=== PATIENT | male | born 1950 | race Caucasian/White ===

== ENCOUNTER 2016-11-04 11:33 | Outpatient (RCR) | payer MEDICARE ==
[~2016-11-04 11:33] MED LIST: ACTO30TA7 PO; ASPI1TAB PO; CIPR500T89 PO; CRES40TA PO; DOCU10CA PO; ENAL5TAB PO; GLIP5TAB8 PO; HYDR25TAB PO; METF1000 PO; PERC5TAB6 PO; TYLE325T5 PO
--- NOTE | 2016-12-02 07:59 | RADONC ---
RADIATION ONCOLOGY PROGRESS NOTE DATE: 12/01/2016 Mr. Jorge is presently at a dose of 6300 cGy to his prostate bed and is tolerating treatments quite well at this point with no complaints related to his radiation therapy. He is having no urinary or bowel difficulties and no bone pain. The patient's review of systems is noncontributory. He denies nausea, vomiting, fevers, chills, night sweats, diplopia, headaches, anxiety or depression, anorexia, weight loss, visual disturbances, chest pain, urinary or bowel difficulties, bone pain, or neurological problems. PHYSICAL EXAMINATION: The patient's skin is in good condition with no evidence of radiation change present. There is no moist dry desquamation. The remainder of his physical exam remains unchanged. Mr. Jorge is tolerating treatments quite well and radiation will continue as scheduled.
== END 2016-12-02 ==
LOC: M ONCR 11:33
PROVIDERS: ATTEND Radiology Radiation Oncology
DX: C61 Malignant neoplasm of prostate (principal)

== ENCOUNTER → 2016-12-02 | Outpatient (CLI) | payer MEDICARE | LOC: M LAB 15:31 | PROVIDERS: ATTEND Urology | DX: C61 Malignant neoplasm of prostate (principal) ==

== ENCOUNTER 2016-12-03 11:10 | Outpatient (RCR) | payer MEDICARE ==
--- NOTE | 2016-12-04 10:02 | RADONC ---
RADIATION ONCOLOGY TREATMENT SUMMARY: DATE: 12/03/2016 CHART NO.: [id number] DIAGNOSIS: Prostate cancer. STAGE: II B, [id number]. ECOG PERFORMANCE STATUS: 0 Mr. Jorge is a pleasant 66-year-old white male with the diagnosis of a stage II B, [id number] moderate to poorly differentiated Bradford score 7 (4-3) adenocarcinoma of the prostate who presented to us status post robotic assisted radical prostatectomy and pelvic lymph node sampling for consideration of postoperative radiation therapy in an attempt to increase his changes of local control and cure. We treated the patient to his prostate bed for a dose of 6660 cGy delivered in 37 fractions of 187 cGy each over 57 elapsed days from 10/07/2016 to 12/03/2016. The patient's prostate bed was treated on a linear accelerator utilizing an 18 MV photon beam via a 3D conformal technique with anterior, posterior, left and right lateral quiles. We initially treated a larger area to a dose of 4500 cGy and subsequently coned down to deliver the remaining 2160 cGy to bring the tumor bed to a total of 6660 cGy. The coned down was utilized in order to maintain the normal tissues within their tolerance limit. Mr. Jorge tolerated his treatments quite well and was able to complete therapy as prescribed without interruption. I have scheduled the patient to see me again in 1 month for further followup. He will also continue to be followed by his other physicians as well. Thank you for allowing us to participate in the care of this very pleasant gentleman. If I can be of any further assistance or provide you with any information, please feel free to contact me at any time. As always warm regards, cc: Darin Fish MD *Dr. Mahamed Shah
== END 2016-12-30 ==
LOC: M ONCR 11:10
PROVIDERS: ATTEND Radiology Radiation Oncology
DX: C61 Malignant neoplasm of prostate (principal)

== ENCOUNTER → 2016-12-26 | Outpatient (CLI) | payer MEDICARE | LOC: M LAB 15:10 | PROVIDERS: ATTEND Radiology Radiation Oncology | DX: C61 Malignant neoplasm of prostate (principal); N18.9 Chronic kidney disease, unspecified; D63.1 Anemia in chronic kidney disease ==

== ENCOUNTER → 2016-12-26 | Outpatient (REF) | payer MEDICARE ==
[2016-12-26 18:10] LABS: PERCENT SATURATION 18.8 % (19.7-37.4)
== END ==
LOC: M LAB REF 17:02
PROVIDERS: ATTEND Internal Medicine Nephrology
DX: N18.9 Chronic kidney disease, unspecified (principal); D63.1 Anemia in chronic kidney disease

== ENCOUNTER → 2016-12-31 | Outpatient (CLI) | payer MEDICARE ==
--- NOTE | 2017-01-02 12:33 | RADONC ---
RADIATION ONCOLOGY FOLLOWUP NOTE DATE: 12/31/2016 CHART NUMBER: [id number]. DIAGNOSIS: Prostate cancer. STAGE: IIB, [id number]. ECOG PERFORMANCE STATUS: 0 FOLLOWUP NOTE: Mr. Jorge is a very pleasant, 66-year-old white male with the diagnosis of a stage IIB, [id number] moderate to poorly differentiated Catrachito score 7 (4 + 3) adenocarcinoma of prostate who is presenting to us today for routine followup visit 1 month post completion of external beam radiation therapy. The patient presents today reporting that he is doing quite well with no complaints at this time related to his radiation therapy or disease. He has no urinary or bowel difficulties and no bone pain. REVIEW OF SYSTEMS: The patient's review of systems is noncontributory. Denies nausea, vomiting, fevers, chills, night sweats, diplopia, headaches, anxiety or depression, anorexia, weight loss, visual disturbances, chest pain, urinary or bowel difficulties, bone pain, or neurological problems. PHYSICAL EXAMINATION: The patient is a well-developed, well-nourished male in no acute distress. HEENT exam is normocephalic, atraumatic. Extraocular movements are intact. There is no palpable cervical, supraclavicular, infraclavicular, axillary, or inguinal lymphadenopathy present. Lungs are clear to auscultation and percussion. Heart has a regular rate and rhythm. Abdomen is benign with no hepatosplenomegaly, masses, or tenderness. Rectal examination reveals a normal anal sphincter tone. His prostate bed is smooth with no evidence of nodularity. Skeletal examination reveals no tenderness to pressure or percussion of the bony skeleton. Extremities reveal no clubbing, cyanosis, or edema. Neurologic exam is grossly intact, as is the remainder of the physical examination. ASSESSMENT: The patient is clinically doing well and will be seen by us again in 6 months for further followup. He will also continue to be followed by his other physicians as well. cc: Darin Fish MD *Dr. Mahamed Shah
== END ==
LOC: M ONCR 15:20
PROVIDERS: ATTEND Radiology Radiation Oncology
DX: C61 Malignant neoplasm of prostate (principal)

== ENCOUNTER → 2017-03-05 | Outpatient (CLI) | payer MEDICARE | LOC: M LAB 13:18 | PROVIDERS: ATTEND Urology | DX: C61 Malignant neoplasm of prostate (principal) ==

== ENCOUNTER → 2017-07-22 | Outpatient (CLI) | payer MEDICARE ==
[~2017-07-22] MED LIST changes: +ACTO30TA15 PO; -ACTO30TA7 PO; +CIPR-249 PO; -CIPR500T89 PO; -METF1000 PO; +METF10004 PO; +PERC5TAB12 PO; -PERC5TAB6 PO
== END ==
LOC: M LAB 14:47
PROVIDERS: ATTEND Radiology Radiation Oncology
DX: C61 Malignant neoplasm of prostate (principal)

== ENCOUNTER → 2017-07-29 | Outpatient (CLI) | payer MEDICARE ==
--- NOTE | 2017-07-30 10:18 | RADONC ---
RADIATION ONCOLOGY FOLLOWUP NOTE DATE: 07/29/2017 CHART NUMBER: [id number]. DIAGNOSISl: Prostate cancer. STAGE: IIB, L2pW3Q2. ECOG PERFORMANCE STATUS: Zero. FOLLOWUP NOTE: Mr. Jorge is a very pleasant, 66-year-old white male with the diagnosis of a stage IIB, [id number], moderate to poorly differentiated Raymond score 7 (4-3) adenocarcinoma of prostate who is presenting to us today for routine followup visit 7 months post completion of external beam radiation therapy. The patient presents today reporting that he is doing quite well with no complaints at this time related to his radiation therapy or disease. He has no urinary or bowel difficulties. No bone pain. REVIEW OF SYSTEMS: The patient's review of systems is noncontributory. Denies nausea, vomiting, fevers, chills, night sweats, diplopia, headaches, anxiety or depression, anorexia, weight loss, visual disturbances, chest pain, urinary or bowel difficulties, bone pain, or neurological problems. PHYSICAL EXAMINATION: The patient is a well-developed, well-nourished male in no acute distress. HEENT exam is normocephalic, atraumatic. Extraocular movements are intact. There is no palpable cervical, supraclavicular, infraclavicular, axillary, or inguinal lymphadenopathy present. Lungs are clear to auscultation and percussion. Heart has a regular rate and rhythm. Abdomen is benign with no hepatosplenomegaly, masses, or tenderness. Rectal examination reveals a normal anal sphincter tone. The patient's prostate bed is smooth with no evidence of nodularity, ulceration, residual or recurrent disease. Skeletal examination reveals no tenderness to pressure or percussion of the bony skeleton. Extremities reveal no clubbing, cyanosis, or edema. Neurologic exam is grossly intact, as is the remainder of the physical examination. ASSESSMENT: The patient is clinically KELLEE at this time will be seen by us again in 6 months for further followup. He will also continue to be followed by his other physicians as well. cc: MD Mahamed Arriaga MD
== END ==
LOC: M ONCR 15:28
PROVIDERS: ATTEND Radiology Radiation Oncology
DX: C61 Malignant neoplasm of prostate (principal)

== ENCOUNTER → 2018-01-26 | Outpatient (CLI) | payer MEDICARE ==
[2018-01-26 16:27] LABS: PROSTATIC SPECIFIC AG MONITOR 0.03 NG/ML (< 4.0)
== END ==
LOC: M LAB 15:02
DX: C61 Malignant neoplasm of prostate (principal)
CPT/HCPCS: 84153

== ENCOUNTER → 2018-02-03 | Outpatient (CLI) | payer MEDICARE | LOC: M ONCR 15:25 | DX: Z08 Encounter for follow-up examination after completed treatment for malignant neoplasm (principal); Z85.46 Personal history of malignant neoplasm of prostate ==

== ENCOUNTER → 2018-04-27 | Outpatient (REF) | payer MEDICARE ==
[2018-04-27 18:45] LABS: TOTAL PROTEIN 6.4 GM/DL (6.4-8.2)
[2018-04-27 19:07] LABS: URINE TOTAL PROTEIN 204.4 MG/DL (0-12)
[2018-04-28 13:28] LABS: ALBUMIN 3.68 GM/DL (3.29-5.55); ALBUMIN % 57.5 % (55.8-66.1); ALPHA-1-GLOBULIN % 5.4 % (2.9-4.9); ALPHA-1-GLOBULINS 0.35 GM/DL (0.17-0.41); ALPHA-2-GLOBULINS 0.95 GM/DL (0.42-0.99); ALPHA-2-GLOBULINS % 14.8 % (7.1-11.8); BETA-1-GLOBULINS 0.41 GM/DL (0.28-0.60); BETA-1-GLOBULINS % 6.4 % (4.7-7.2); BETA-2-GLOBULINS 0.26 GM/DL (0.19-0.55); GAMMA GLOBULIN % 11.9 % (11.1-18.8); GAMMA GLOBULINS 0.76 GM/DL (0.65-1.58)
[2018-04-28 13:38] LABS: IMMUNOTYPING SERUM IGM ABNORMAL (NORMAL); IMMUNOTYPING SERUM KAPPA ABNORMAL (NORMAL)
[2018-04-29 13:00] LABS: UPEP INTERPRETATION NO M-SPIKE NOTED; URINE VOLUME RANDOM ML
[2018-04-30 08:48] LABS: FREE LAMBDA LIGHT CHAINS URINE 8.76 mg/L (0.24-6.66); KAPPA/LAMBDA RATIO URINE 19.29 (2.04-10.37)
== END ==
LOC: M LAB REF 16:55
DX: R80.9 Proteinuria, unspecified (principal)
CPT/HCPCS: 84165

== ENCOUNTER → 2018-05-07 | Outpatient (REF) | payer MEDICARE ==
[2018-05-07 14:06] LABS: FERRITIN 39 NG/ML (26-388); IMMUNOGLOBULIN A 72.2 MG/DL (70-400); IMMUNOGLOBULIN G 464 MG/DL (681-1648); IMMUNOGLOBULIN M 411 MG/DL (40-230)
[2018-05-12 00:08] LABS: FREE LAMBDA LIGHT CHAINS SERUM 18.8 mg/L (5.7-26.3); KAPPA/LAMBDA RATIO SERUM 4.63 (0.26-1.65)
== END ==
LOC: M LAB REF 13:25
DX: D47.2 Monoclonal gammopathy (principal)
CPT/HCPCS: 82728

== ENCOUNTER → 2018-05-07 | Outpatient (CLI) | payer MEDICARE | LOC: M RAD 10:48 | DX: D47.2 Monoclonal gammopathy (principal) | CPT/HCPCS: 77075 ==

== ENCOUNTER → 2018-06-01 | Outpatient (REF) | payer MEDICARE ==
[2018-06-01 13:39] LABS: TOTAL VOLUME, URINE 2300 ML
[2018-06-01 14:23] LABS: TOTAL PROTEIN 24 HOUR URINE 3125.7 MG/24HR (50-150); URINE TOTAL PROTEIN 135.9 MG/DL (0-12)
== END ==
LOC: M LAB REF 13:11
DX: R80.9 Proteinuria, unspecified (principal)
CPT/HCPCS: 81050

== ENCOUNTER → 2018-06-04 | Outpatient (REF) | payer MEDICARE ==
[2018-06-04 14:10] LABS: COMPLEMENT C3 133 MG/DL (90-180)
[2018-06-04 14:18] LABS: HEPATITIS B SURFACE ANTIBODY NEGATIVE (POSITIVE)
[2018-06-04 14:28] LABS: HEPATITIS B SURFACE ANTIGEN NEGATIVE (NEGATIVE)
[2018-06-04 14:56] LABS: HEPATITIS B CORE ANTIBODY IGM NEGATIVE (NEGATIVE); HEPATITIS C VIRUS ABY INDEX 0.1 INDEX (<0.8)
[2018-06-08 00:06] LABS: ANCA-ATYPICAL <1:20 titer (Neg:<1:20); ANTI DOUBLE STRAND-DNA AB 1 IU/mL (0-9); ANTINUCLEAR ANTIBODIES DIRECT Negative (Negative); CYTOPLASMIC NEUTROP AB ANCA-C <1:20 titer (Neg:<1:20); PERINUCLEAR AB ANCA-P <1:20 titer (Neg:<1:20)
== END ==
LOC: M LAB REF 13:36
DX: R80.9 Proteinuria, unspecified (principal)
CPT/HCPCS: 86706

== ENCOUNTER → 2018-08-12 | Outpatient (CLI) | payer MEDICARE ==
[2018-08-12 15:37] LABS: PROSTATIC SPECIFIC AG MONITOR 0.03 NG/ML (< 4.0)
== END ==
LOC: M LAB 14:22
DX: C61 Malignant neoplasm of prostate (principal)
CPT/HCPCS: 84153

== ENCOUNTER → 2018-08-18 | Outpatient (CLI) | payer MEDICARE | LOC: M ONCR 15:10 | DX: C61 Malignant neoplasm of prostate (principal) ==

== ENCOUNTER → 2018-08-25 | Outpatient (CLI) | payer MEDICARE | LOC: M RAD 07:50 | DX: K76.0 Fatty (change of) liver, not elsewhere classified (principal); N28.1 Cyst of kidney, acquired; K87 Disorders of gallbladder, biliary tract and pancreas in diseases classified elsewhere; D64.9 Anemia, unspecified; N18.9 Chronic kidney disease, unspecified; D47.2 Monoclonal gammopathy | CPT/HCPCS: 76700 ==

== ENCOUNTER → 2019-03-21 | Outpatient (REF) | payer MEDICARE ==
[~2019-03-21] MED LIST changes: +AMLO2.5T3 PO; -ASPI1TAB PO; +ASPI81TA26 PO; +DRIS50003 PO; +ENAL10TA2 PO; +HYDR-2541 PO; +HYDR12.55 PO; +JANU25TA PO
[2019-03-21 17:15] LABS: URINE TOTAL PROTEIN 101.3 MG/DL (0-12)
[2019-03-21 17:19] LABS: URINE TOTAL PROTEIN 99.9 MG/DL (0-12)
[2019-03-21 22:18] LABS: TOTAL PROTEIN 24 HOUR URINE 3446.5 MG/24HR (50-150)
[2019-03-24 13:27] LABS: UPEP INTERPRETATION NO M-SPIKE NOTED; URINE VOLUME RANDOM ML
== END ==
LOC: M LAB REF 12:51
PROVIDERS: ATTEND Internal Medicine Nephrology
DX: R80.9 Proteinuria, unspecified (principal)

== ENCOUNTER → 2019-04-14 | Outpatient (CLI) | payer MEDICARE ==
[2019-04-14 14:57] LABS: PROTHROMBIN TIME 13.6 SECONDS (12.1-14.4)
[2019-04-18 06:06] LABS: INR 1.03
== END ==
LOC: M LAB 13:45
PROVIDERS: ATTEND Internal Medicine Nephrology
DX: C88.0 Waldenstrom macroglobulinemia (principal); R80.9 Proteinuria, unspecified

== ENCOUNTER 2019-04-19 10:31 | Observation (INO) | payer MEDICARE ==
[~2019-04-19] VITALS: Ht 175.3 cm; Wt 103.7 kg
[2019-04-19] MEDS ORDERED: LIDOCAINE 1% MDV 20ML VIAL As Ordered ONE (10:51)
[2019-04-19] MEDS ORDERED: PERCOCET 5MG/325MG TAB As Ordered ONE (14:03)
[2019-04-19 14:52] LABS: BASO % 0.4 % (0.0-1.0); EOS # 0.1 10^3/uL (0.0-0.50); HEMATOCRIT 37.8 % (42.0-52.0); LYMPH # 0.7 10^3/uL (1.5-4.5); LYMPH % 8.5 % (24.0-44.0); MEAN CORPUSCULAR HEMOGLOBIN 28.7 pg (27.0-33.0); MEAN CORPUSCULAR HGB CONC 31.7 g/dl (32.0-36.5); MEAN CORPUSCULAR VOLUME 90.4 fl (80.0-96.0); MONO # 0.4 10^3/uL (0.0-0.8); MONO % 5.7 % (0.0-5.0); NEUTROPHILS # 6.5 10^3/uL (1.8-7.7); PLATELET COUNT, AUTOMATED 243 10^3/uL (150-450); RED BLOOD COUNT 4.18 10^6/uL (4.30-6.10); WHITE BLOOD COUNT 7.7 10^3/uL (4.0-10.0)
--- NOTE | 2019-04-19 16:24 | REP ---
RENAL ULTRASOUND: Real-time sonographic evaluation of the kidneys are performed status-post left renal biopsy. The kidneys are normal in size, right kidney measuring 10.7 x 5.6 x 5.7 cm and left kidney 12.1 x 5.0 x 6.1 cm. There is no hydronephrosis bilaterally. Cyst in the upper pole of the left kidney measures 1.3 x 1.2 x 1.0 cm. There is a hypoechoic area in the lower pole of the left kidney which may represent a small postbiopsy hematoma. This is unchanged compared to the prior immediate postbiopsy images approximately 2.5 hours earlier. Urinary bladder is not well distended. Electronically Signed by Kota Leonard MD 04/19/2019 04:45 P
[2019-04-19 17:05] VITALS: BP 170/85
[2019-04-19] MEDS ORDERED: PILL CUTTER 1 EACH XX PRN (17:45)
[2019-04-19 18:15] LABS: BASO % 0.3 % (0.0-1.0); EOS % 0.1 % (0.0-3.0); HEMATOCRIT 38.8 % (42.0-52.0); HEMOGLOBIN 12.3 g/dl (13.5-17.5); LYMPH # 0.4 10^3/uL (1.5-4.5); MEAN CORPUSCULAR HGB CONC 31.7 g/dl (32.0-36.5); MEAN CORPUSCULAR VOLUME 91.5 fl (80.0-96.0); MONO # 0.3 10^3/uL (0.0-0.8); MONO % 3.7 % (0.0-5.0); NEUTROPHILS # 8.5 10^3/uL (1.8-7.7); NEUTROPHILS % 91.6 % (36.0-66.0); PLATELET COUNT, AUTOMATED 235 10^3/uL (150-450); RED BLOOD COUNT 4.24 10^6/uL (4.30-6.10); WHITE BLOOD COUNT 9.3 10^3/uL (4.0-10.0)
[2019-04-19] MEDS ORDERED: TAMSULOSIN 0.4 MG CAP PO ONE (18:15)
[2019-04-19] MEDS: MORPHINE 4 MG/ML 1ML VIAL/SYRINGE (J2270) IV PRN ×2 (18:17→22:36)
[2019-04-19] MEDS ORDERED: ONDANSETRON 4MG/2ML VIAL (J2405) IV PRN (20:00)
[2019-04-19] MEDS ORDERED: MORPHINE 4 MG/ML 1ML VIAL/SYRINGE (J2270) IV ONE (20:00)
[2019-04-19] MEDS ORDERED: NS 1,000 ML IV SCH (20:00)
--- NOTE | 2019-04-19 20:34 | HPE ---
DATE OF ADMISSION: 04/19/2019 CHIEF COMPLAINT: The patient got outpatient ultrasound-guided left renal biopsy, and after the biopsy he had hematuria and left lower quadrant abdominal pain. HISTORY OF PRESENT ILLNESS: Mr. Jensen Jorge is a 68-year-old male with past medical history of chronic kidney disease, stage III, with a baseline creatinine of around 1.9, hypertension, diabetes mellitus, type 2, history of IgM monoclonal gammopathy. Bone marrow biopsy confirmed Waldenstrom macroglobulinemia. The patient had persistent proteinuria as outpatient. Latest 24-hour urine collection was about 3.4 grams of protein, so the patient was scheduled today as outpatient for ultrasound-guided left renal biopsy for etiology of proteinuria. The patient had biopsy done today in the afternoon. Immediately post biopsy procedure, there were no complications; however, about half an hour later when patient voided urine, urine was pantoja red in color, and later on patient started having a left lower quadrant abdominal pain with elevated blood pressures. Repeat ultrasound done in the emergency room showed no significant hematoma. Repeat complete blood count (CBC) showed stable hemoglobin. Because of persistent pain in the left lower quadrant, the patient was admitted to hospital for observation and further management. PAST MEDICAL HISTORY: 1. Diabetes mellitus, type 2. 2. Hypertension. 3. Chronic kidney disease, stage III. 4. Hyperlipidemia. 5. History of prostate cancer. 6. Waldenstrom macroglobulinemia. PAST SURGICAL HISTORY: 1. Status post prostatectomy. 2. History of small-bowel obstruction surgery at age 11 years of age. 3. Status post tonsillectomy. 4. Status post ultrasound-guided left renal biopsy done today. ALLERGIES: The patient is allergic to PENICILLINS. FAMILY HISTORY: No significant family history of end-stage renal disease requiring hemodialysis. There is positive history of stroke in the mother and heart attack in the father. SOCIAL HISTORY: The patient lives alone. He is retired. He has never smoked. He denies any illicit drug abuse. He rarely consumes alcohol. REVIEW OF SYSTEMS: CONSTITUTIONAL: Patient denies any fevers or chills. EYES: He denies any blurry vision, double vision. ENT: He denies any dysphagia, odynophagia, ear discharge. CARDIOVASCULAR: He denies any chest pain, shortness of breath, palpitation. RESPIRATORY: He denies any cough or hemoptysis. GASTROINTESTINAL: He denies any nausea. He does report left lower quadrant abdominal pain. GENITOURINARY: He reports hematuria after the procedure. MUSCULOSKELETAL: He denies any muscle aches and pains. SKIN: He denies any rashes or ulcers. CENTRAL NERVOUS SYSTEM: He denies any strokes or seizures. PSYCHIATRIC: He denies any depression or anxiety. ENDOCRINE: He reports history of diabetes mellitus, type 2, HEMATOLOGIC/ONCOLOGIC: Patient recently had hematuria, and he has Waldenstrom macroglobulinemia. HOME MEDICATIONS: The patient's home medications include: - Januvia 25 mg daily - amlodipine 2.5 mg daily - Actos 30 mg by mouth daily - Crestor 40 mg daily - hydrochlorothiazide 25 mg daily - glipizide 5 mg by mouth twice a day - enalapril 10 mg by mouth twice a day PHYSICAL EXAMINATION: GENERAL: The patient is awake, alert, and oriented times three, lying in bed. Mild painful distress in the left lower quadrant. VITAL SIGNS: Temperature is 97.5 degrees Fahrenheit. Blood pressure is 170/85, pulse is 95, respiratory rate of 18, saturating 93% on room air. HEAD AND NECK: Extraocular muscles intact. Pupils equally round and reactive to light. Mucous membranes are moist. Neck is supple. There is no jugular venous distention (JVD). CARDIOVASCULAR: S1, S2, regular rate. No edema of the bilateral lower extremities. RESPIRATORY: Chest is clear to auscultation bilaterally. Bilateral equal air entry. No rales or rhonchi. ABDOMEN: Soft. Positive bowel sounds. Very mild tenderness to deep palpation in the left lower quadrant. There is a dressing above the left kidney where the biopsy was done. No hematoma or local inflammation was noted. GENITOURINARY: Bladder is not palpable. MUSCULOSKELETAL: No clubbing or cyanosis. Pulses are 2+. CENTRAL NERVOUS SYSTEM: No focal deficit. Power is 5/5 in all extremities. PSYCHIATRIC: Normal mood and affect. SKIN: No rashes or ulcers. LABORATORY REVIEW: CBC showed a WBC of 7.7, hemoglobin is 12, platelets are 243. IMAGING STUDIES: A repeat ultrasound was done after the biopsy, which showed the kidneys are normal in size. Right kidney is 10.7 cm. Left kidney 12.1 cm. There is no hydronephrosis. There is a small cyst in the upper pole of the left kidney. There was a very small hematoma in the lower pole of the left kidney. ASSESSMENT: A 68-year-old male with a history of chronic kidney disease, stage III, proteinuria, diabetes mellitus, type 2, Waldenstrom macroglobulinemia, being admitted with hematuria and left lower quadrant pain after renal biopsy. PLAN: 1. Hematuria. The patient immediately post biopsy had hematuria. Initial urine was pantoja-red in color. It is clearing now. Since patient has pain in the left lower quadrant, there is high likelihood that the patient might have a clot in the left ureter. Continue gentle intravenous (IV) fluid hydration. I have discussed the case with urology as well. The patient will be kept nothing by mouth overnight in case he needs any procedure, and he will also get CT scan with intravenous (IV) contrast tomorrow morning. 2. Pain in left lower quadrant abdomen: Pain is most likely secondary to a clot in the ureter. There is no pain locally at the kidney biopsy site. Repeat renal ultrasound done already showed no significant evidence of perirenal hematoma. Continue pain optimization with morphine 2 mg IV every 4 four hours for pain. Continue Zofran for nausea. 3. Hypertension. Continue home dose of amlodipine 2 mg by mouth daily, enalapril 10 mg by mouth twice a day, hydrochlorothiazide 25 mg by mouth daily. 4. Diabetes mellitus, type 2. Continue home dose of glipizide 5 mg by mouth twice a day. Continue Januvia 25 mg by mouth daily. Continue fingerstick blood sugar checks. 5. Hyperlipidemia. Continue rosuvastatin 40 mg by mouth daily.
[2019-04-19] MEDS ORDERED: ROSUVASTATIN 10 MG TAB (CRESTOR) PO SCH (21:00)
[2019-04-19] MEDS ORDERED: ENALAPRIL MALEATE 10 MG TAB PO SCH (21:00)
[2019-04-19] MEDS: glipiZIDE (GLUCOTROL) 5 MG TAB PO SCH (21:08)
[2019-04-19 22:00] VITALS: BP 167/94
[2019-04-19 22:02] LABS: BASO % 0.2 % (0.0-1.0); HEMATOCRIT 38.7 % (42.0-52.0); HEMOGLOBIN 12.4 g/dl (13.5-17.5); LYMPH # 0.3 10^3/uL (1.5-4.5); LYMPH % 3.4 % (24.0-44.0); MEAN CORPUSCULAR HEMOGLOBIN 29.2 pg (27.0-33.0); MEAN CORPUSCULAR VOLUME 91.1 fl (80.0-96.0); MONO # 0.2 10^3/uL (0.0-0.8); MONO % 1.6 % (0.0-5.0); NEUTROPHILS # 9.2 10^3/uL (1.8-7.7); NEUTROPHILS % 94.5 % (36.0-66.0); PLATELET COUNT, AUTOMATED 235 10^3/uL (150-450); RED BLOOD COUNT 4.25 10^6/uL (4.30-6.10); WHITE BLOOD COUNT 9.8 10^3/uL (4.0-10.0)
[2019-04-20] MEDS: MORPHINE 4 MG/ML 1ML VIAL/SYRINGE (J2270) IV PRN (02:44)
[2019-04-20 06:00] VITALS: BP 130/84
[2019-04-20 06:18] LABS: BASO % 0.1 % (0.0-1.0); HEMATOCRIT 34.5 % (42.0-52.0); HEMOGLOBIN 11.2 g/dl (13.5-17.5); LYMPH # 0.5 10^3/uL (1.5-4.5); LYMPH % 6.1 % (24.0-44.0); MEAN CORPUSCULAR HEMOGLOBIN 28.6 pg (27.0-33.0); MEAN CORPUSCULAR HGB CONC 32.5 g/dl (32.0-36.5); MONO # 0.5 10^3/uL (0.0-0.8); MONO % 5.9 % (0.0-5.0); NEUTROPHILS # 6.8 10^3/uL (1.8-7.7); NEUTROPHILS % 87.5 % (36.0-66.0); PLATELET COUNT, AUTOMATED 246 10^3/uL (150-450); RED BLOOD COUNT 3.92 10^6/uL (4.30-6.10); WHITE BLOOD COUNT 7.8 10^3/uL (4.0-10.0)
[2019-04-20 06:50] LABS: ALBUMIN 2.7 GM/DL (3.2-5.2); CALCIUM LEVEL 8.7 MG/DL (8.8-10.2); CREATININE FOR GFR 2.06 MG/DL (0.70-1.30); GLOMERULAR FILTRATION RATE 34.3 (>49); PHOSPHORUS LEVEL 3.7 MG/DL (2.5-4.9); POTASSIUM SERUM 4.4 MEQ/L (3.5-5.1)
--- NOTE | 2019-04-20 07:54 | SMCUROLCON ---
Urology Consultation General Date of Consultation 04/20/19 Reason For Consultation This patient is seen for Hemateria. History of Present Illness This is a 68 y/o M w/ DM2, HTN, prostate cancer (s/p RALP w/ BPLND on 08/03/15 and then salvage EBRT w/ ADT for a biochemical recurrence), and CKD, admitted to the hospital yesterday for gross hematuria and severe left flank pain after undergoing a kidney biopsy. He notes having the onset of left flank pain and hematuria shortly after the biopsy. The pain continued through early this morning and stopped after he voided a few clots out. At this time he feels well and has no pain at all. He denied any difficulty voiding. Past Medical History Medical History see HPI Surgical Hstory see HPI Medications Current Medications Current Medications Amlodipine Besylate (Norvasc) 2.5 mg DAILY PO ; Start 04/20/19 at 09:00 Enalapril Maleate (Vasotec) 10 mg BID PO Last administered on 04/19/19at 20:19; Start 04/19/19 at 21:00; Status Future hold Glipizide (Glucotrol) 5 mg BID@0730,1730 PO Last administered on 04/19/19at 21:08; Start 04/19/19 at 17:30 Home Med (Med Rec Complete!) ASDIRECTED XX ; Start 04/19/19 at 17:45; Stop 04/19/19 at 17:45; Status DC Hydrochlorothiazide (Hydrodiuril) 25 mg DAILY PO ; Start 04/20/19 at 09:00; Stop 04/20/19 at 09:00; Status DC Morphine Sulfate (Morphine Sulfate Inj) 2 mg Q4HP PRN IV MODERATE PAIN (PS 5-7) Last administered on 04/20/19at 02:44; Start 04/19/19 at 18:15 Ondansetron HCl (ZOFRAN INJection) 4 mg Q4HP PRN IV NAUSEA; Start 04/19/19 at 20:00 Rosuvastatin Calcium (Crestor) 40 mg DAILY@2100 PO Last administered on 04/19/19at 20:18; Start 04/19/19 at 21:00 Sitagliptin Phosphate (Januvia) 25 mg DAILY PO ; Start 04/20/19 at 09:00 Sodium Chloride 1,000 ml @ 60 mls/hr [id number] IV Last administered on 04/19/19at 20:18; Start 04/19/19 at 20:00 Allergies Allergies: Coded Allergies: Penicillins (Verified Allergy, Unknown, CHILDHOOD ALLERGY , 04/19/19) Review of Systems General: Reports: Normal Appetite; Denies: Fatigue, Malaise Constitutional: Denies: Fever, Chills, Sweats, Weakness, Malaise Skin: Denies: Rash, Lesions, Jaundice, Bruising, Itching, Dry, Breakdown, Nail Changes, Other Pulmonary: Denies: Dyspnea, Cough Cardiovascular: Denies Chest Pain, Denies Palpitations Gastrointestinal: Reports: Nausea (now resolved) Genitourinary: Reports: Hematuria; Denies: Dysuria, Frequency Musculoskeletal: Reports: Back Pain (left flank pain - now resolved) Neurological: Denies: Weakness, Numbness, Incoordination, Change in Speech Psych: Reports: Mood Normal; Denies: Anxiety, Depression Physical Examination General Exam: Alert, Cooperative, No Acute Distress Chest Exam: Normal air movement Heart Exam: Regular Rhythm Abdomen Exam: Soft; No: Tenderness Skin Exam: Nl turgor and temperature Neuro Exam: Normal Speech Psych Exam: Mental status NL, Mood NL Vital Signs/I&O Vital Signs Date Time Temp Pulse Resp B/P (MAP) Pulse Ox O2 Delivery O2 Flow Rate FiO2 04/20/19 06:00 98.1 103 18 130/84 (99) 91 I&O- Last 24 Hours up to 6 AM 04/20/19 06:00 Intake Total 200 ml Output Total 1250 ml Balance -1050 ml Laboratory Data 24H Labs Laboratory Tests 2 04/19/19 10:31: Lab Scanned Report LAB OTHER 04/19/19 14:31: Immature Granulocyte % (Auto) 0.4, White Blood Count 7.7, Red Blood Count 4.18L, Hemoglobin 12.0L, Hematocrit 37.8L, Mean Corpuscular Volume 90.4, Mean Corpuscular Hemoglobin 28.7, Mean Corpuscular Hemoglobin Concent 31.7L, Red Cell Distribution Width 13.8, Platelet Count 243, Neutrophils (%) (Auto) 84.0H, Lymphocytes (%) (Auto) 8.5L, Monocytes (%) (Auto) 5.7H, Eosinophils (%) (Auto) 1.0, Basophils (%) (Auto) 0.4, Neutrophils # (Auto) 6.5, Lymphocytes # (Auto) 0.7L, Monocytes # (Auto) 0.4, Eosinophils # (Auto) 0.1, Basophils # (Auto) 0.0, Nucleated Red Blood Cells % (auto) 0.0 04/19/19 18:06: Immature Granulocyte % (Auto) 0.3, White Blood Count 9.3, Red Blood Count 4.24L, Hemoglobin 12.3L, Hematocrit 38.8L, Mean Corpuscular Volume 91.5, Mean Corpuscular Hemoglobin 29.0, Mean Corpuscular Hemoglobin Concent 31.7L, Red Cell Distribution Width 13.7, Platelet Count 235, Neutrophils (%) (Auto) 91.6H, Lymphocytes (%) (Auto) 4.0L, Monocytes (%) (Auto) 3.7, Eosinophils (%) (Auto) 0.1, Basophils (%) (Auto) 0.3, Neutrophils # (Auto) 8.5H, Lymphocytes # (Auto) 0.4L, Monocytes # (Auto) 0.3, Eosinophils # (Auto) 0.0, Basophils # (Auto) 0.0, Nucleated Red Blood Cells % (auto) 0.0 04/19/19 21:56: Immature Granulocyte % (Auto) 0.3, White Blood Count 9.8, Red Blood Count 4.25L, Hemoglobin 12.4L, Hematocrit 38.7L, Mean Corpuscular Volume 91.1, Mean Corpuscular Hemoglobin 29.2, Mean Corpuscular Hemoglobin Concent 32.0, Red Cell Distribution Width 13.7, Platelet Count 235, Neutrophils (%) (Auto) 94.5H, Lymphocytes (%) (Auto) 3.4L, Monocytes (%) (Auto) 1.6, Eosinophils (%) (Auto) 0.0, Basophils (%) (Auto) 0.2, Neutrophils # (Auto) 9.2H, Lymphocytes # (Auto) 0.3L, Monocytes # (Auto) 0.2, Eosinophils # (Auto) 0.0, Basophils # (Auto) 0.0, Nucleated Red Blood Cells % (auto) 0.0 04/20/19 06:06: Immature Granulocyte % (Auto) 0.4, White Blood Count 7.8, Red Blood Count 3.92L, Hemoglobin 11.2L, Hematocrit 34.5L, Mean Corpuscular Volume 88.0, Mean Corpuscular Hemoglobin 28.6, Mean Corpuscular Hemoglobin Concent 32.5, Red Cell Distribution Width 13.7, Platelet Count 246, Neutrophils (%) (Auto) 87.5H, Lymphocytes (%) (Auto) 6.1L, Monocytes (%) (Auto) 5.9H, Eosinophils (%) (Auto) 0.0, Basophils (%) (Auto) 0.1, Neutrophils # (Auto) 6.8, Lymphocytes # (Auto) 0.5L, Monocytes # (Auto) 0.5, Eosinophils # (Auto) 0.0, Basophils # (Auto) 0.0, Nucleated Red Blood Cells % (auto) 0.0, Blood Urea Nitrogen 38H, Creatinine 2.06H, Sodium Level 139, Potassium Level 4.4, Chloride Level 107, Carbon Dioxide Level 25, Anion Gap 7L, Glomerular Filtration Rate 34.3L, Calcium Level 8.7L, Phosphorus Level 3.7, Albumin 2.7L CBC/BMP Laboratory Tests 04/19/19 14:31 Red Blood Count 4.18 L, Mean Corpuscular Volume 90.4, Mean Corpuscular Hemoglobin 28.7, Mean Corpuscular Hemoglobin Concent 31.7 L, Red Cell Distribution Width 13.8, Neutrophils (%) (Auto) 84.0 H, Lymphocytes (%) (Auto) 8.5 L, Monocytes (%) (Auto) 5.7 H, Eosinophils (%) (Auto) 1.0, Basophils (%) (Auto) 0.4, Neutrophils # (Auto) 6.5, Lymphocytes # (Auto) 0.7 L, Monocytes # (Auto) 0.4, Eosinophils # (Auto) 0.1, Basophils # (Auto) 0.0 04/19/19 18:06 Red Blood Count 4.24 L, Mean Corpuscular Volume 91.5, Mean Corpuscular Hemoglobin 29.0, Mean Corpuscular Hemoglobin Concent 31.7 L, Red Cell Distribution Width 13.7, Neutrophils (%) (Auto) 91.6 H, Lymphocytes (%) (Auto) 4.0 L, Monocytes (%) (Auto) 3.7, Eosinophils (%) (Auto) 0.1, Basophils (%) (Auto) 0.3, Neutrophils # (Auto) 8.5 H, Lymphocytes # (Auto) 0.4 L, Monocytes # (Auto) 0.3, Eosinophils # (Auto) 0.0, Basophils # (Auto) 0.0 04/19/19 21:56 Red Blood Count 4.25 L, Mean Corpuscular Volume 91.1, Mean Corpuscular Hemoglobin 29.2, Mean Corpuscular Hemoglobin Concent 32.0, Red Cell Distribution Width 13.7, Neutrophils (%) (Auto) 94.5 H, Lymphocytes (%) (Auto) 3.4 L, Monocytes (%) (Auto) 1.6, Eosinophils (%) (Auto) 0.0, Basophils (%) (Auto) 0.2, Neutrophils # (Auto) 9.2 H, Lymphocytes # (Auto) 0.3 L, Monocytes # (Auto) 0.2, Eosinophils # (Auto) 0.0, Basophils # (Auto) 0.0 04/20/19 06:06 Red Blood Count 3.92 L, Mean Corpuscular Volume 88.0, Mean Corpuscular Hemoglobin 28.6, Mean Corpuscular Hemoglobin Concent 32.5, Red Cell Distribution Width 13.7, Neutrophils (%) (Auto) 87.5 H, Lymphocytes (%) (Auto) 6.1 L, Monocytes (%) (Auto) 5.9 H, Eosinophils (%) (Auto) 0.0, Basophils (%) (Auto) 0.1, Neutrophils # (Auto) 6.8, Lymphocytes # (Auto) 0.5 L, Monocytes # (Auto) 0.5, Eosinophils # (Auto) 0.0, Basophils # (Auto) 0.0, Anion Gap 7 L Assessment This is a 68 y/o M w/ CKD, admitted to the hospital yesterday for gross hematuria and severe left flank pain after undergoing a kidney biopsy. His pain has resolved and was likely due to him passing a clot through his left co llecting system. His Hb is stable around 11. His Cr did bump to 2 from a baseline of 1.5, likely due to intermittent obstruction. His vitals have remained stable. Given the improvement in pain and stable Hb I do not feel any additional imaging or intervention is required. I advised the patient that he might have some hematuria on and off for the next few days, but it should resolve. Plan - no additional imaging or intervention recommended since patient's pain has res olved and his Hb has remained stable - recommend following up on Cr, but I suspect this will improve now that his obstruction has likely passed - he will f/u w/ me as planned in Sep for his hx of prostate cancer VIKTORIYA CONKLIN MD Apr 20, 2019 07:54
[2019-04-20] MEDS ORDERED: hydroCHLOROthiazide 25 MG TAB PO SCH (09:00)
[2019-04-20] MEDS ORDERED: SITagliptin 50 MG TAB (JANUVIA) PO SCH (09:00)
[2019-04-20 09:35] VITALS: BP 130/84
[2019-04-20] MEDS: glipiZIDE (GLUCOTROL) 5 MG TAB PO SCH (09:35)
[2019-04-20 10:00] VITALS: BP 132/76
--- NOTE | 2019-04-20 12:18 | RO ---
DATE OF PROCEDURE: 04/19/2019 INDICATION OF THE PROCEDURE: Proteinuria, monoclonal gammopathy of unknown undetermined significance, chronic kidney disease stage 3, and diabetes mellitus type 2. ANESTHESIA: 1% lidocaine local anesthesia was used. CONSENT: Informed and written consent was obtained from the patient and placed in the chart. PREPROCEDURE DIAGNOSIS: Proteinuria and chronic kidney disease stage 3. POSTPROCEDURE DIAGNOSIS: Proteinuria. PERFORMING PHYSICIAN: Dr. Zaira Puga PRODUCT/DEVICE TECHNOLOGIST: DESCRIPTION OF PROCEDURE: The patient was laying down on the table prone position comfortably. The procedure had already been explained to the patient. Both kidneys were localized with ultrasound. The left kidney was marked for renal biopsy. The patient was prepped and draped in sterile fashion. Proper infection control precaution was taken. 15 mL of 1% lidocaine was injected initially with a 25-gauge needle and later on with a spinal needle. After the area was numb, a 17-gauge introducer needle was inserted under ultrasound guidance all the way up to the lower pole of the left kidney up to the renal capsule. Then, an 18-gauge kidney biopsy needle was inserted. At total of 4 passes were made and 3 core biopsy specimens were obtained. Specimen was sent to the pathology department for further processing. Postprocedure, the kidney was looked up with ultrasound for any complication. There was no hematoma noted. COMPLICATIONS: Immediately postprocedure, there were no complications. ESTIMATED BLOOD LOSS: None. POST BIOPSY ORDERS: The patient was sent to radiology holding area. His vital will be checked every 15 minutes for 2 hours and then every 30 minutes for the next 2 hours. Complete bedrest with commode privileges. Diabetic diet with 12 gram sodium. Urine output to be monitored. Nurse to call the MD for hematuria or systolic blood pressure less than 100. The patient to be sent home if stable in 4 hours.
--- NOTE | 2019-04-21 12:34 | REP ---
ULTRASOUND GUIDANCE: HISTORY: Proteinuria. Guidance for renal biopsy. FINDINGS: Real-time sonographic guidance is provided to Dr. Puga, who performed ultrasound-guided needle biopsy of the lower pole of the right kidney. Electronically Signed by Don Restrepo MD 04/21/2019 02:19 P
--- NOTE | 2019-04-21 15:13 | DSES ---
DATE OF ADMISSION: 04/19/2019 DATE OF DISCHARGE: 04/20/2019 ATTENDING PHYSICIAN: Zaira Puga MD CONDITION ON DISCHARGE: Stable. FINAL DIAGNOSIS: Renal colic secondary to blood clot in the left ureter. SECONDARY DIAGNOSIS: Hematuria after left-sided renal biopsy under ultrasound guidance. OTHER DIAGNOSES: Diabetes mellitus type 2, hypertension, proteinuria, Waldenstrom macroglobulinemia. PROCEDURES PERFORMED: The patient had outpatient left renal ultrasound guided biopsy done yesterday. HISTORY OF PRESENT ILLNESS: Mr. Jensen Jorge is a 68-year-old male with history of chronic kidney disease stage III, baseline creatinine of 1.9, hypertension, diabetes mellitus type 2 and Waldenstrom macroglobulinemia. He presented as outpatient yesterday for ultrasound-guided biopsy. Biopsy was done yesterday afternoon on the left kidney. About half an hour after the biopsy he started having hematuria which was followed by colicky left lower quadrant abdominal pain, so patient was admitted overnight for observation. HOSPITAL COURSE: The patient was admitted overnight. He was started on IV fluid hydration with normal saline. Repeat ultrasound was done overnight, which did not show any significant perirenal hematoma. He continued to require IV opioid pain medications. He needed about three injections of morphine for pain and the patient reports that around 3 o'clock in the morning he passed a few blood clots in the urine and after that his pain got better. The patient was seen by urology in the morning as well by Dr. Fish and they also agreed that the patient likely passed a clot through the left ureter which was causing renal colic. His pain is improved. The patient will be followed up by urology as outpatient because of history of prostate cancer. The patient was seen and examined by myself today morning. He is afebrile, hemodynamically stable. His vital signs include temperature 97.9 degrees Fahrenheit, blood pressure 132/76, pulse is 92, respiratory rate of 18, saturating 96% on room air. Head and neck examination: Extraocular muscles intact. Pupils equally round and reactive to light. Mucous membranes are moist. Neck is supple. There is no JVD. Cardiovascular: S1, S2, regular rate. No edema of the bilateral lower extremities. Respiratory: Chest is clear to auscultation bilaterally. Abdomen: Soft. Positive bowel sounds. Nontender. No organomegaly. He has left-sided renal biopsy site dressing. No tenderness at the biopsy site. Musculoskeletal: No clubbing or cyanosis. Pulses are 2+. WASTEWATER PROJECT MANAGER: No focal deficit. Power is 5/5 in all extremities. LAB REVIEW: CBC showed a WBC 7.3, hemoglobin 11.2, platelets are 246. BMP showed sodium 139, potassium 4.4, chloride 107, bicarb 25, BUN 28, creatinine is 2. Calcium 8.7, phosphorus at 3.7. DISCHARGE MEDICATIONS: The patient is being discharged home on his current home medications of amlodipine 2.5 mg by mouth daily, enalapril 10 mg by mouth twice a day, glipizide 5 mg by mouth twice a day, hydrochlorothiazide 25 mg by mouth daily, rosuvastatin 40 mg by mouth daily, Januvia 25 mg by mouth daily, Actos 30 mg by mouth daily. DISCHARGE INSTRUCTIONS: Diet: 2 grams sodium consistent-carbohydrate diet. Activity: As tolerated. The patient is discharged home. FOLLOW-UP APPOINTMENTS The patient already has nephrology followup to discuss the renal biopsy results. Total of 45 minutes were spent in arranging the discharge of this patient today morning.
== END 2019-04-20 15:15 | disposition home or self-care (01) ==
LOC: M RADPRO 10:31 → M MS5PR 16:28
PROVIDERS: ADMIT Internal Medicine Nephrology; ATTEND Internal Medicine Nephrology
DX: N23 Unspecified renal colic (principal); N28.89 Other specified disorders of kidney and ureter; R31.9 Hematuria, unspecified; Z98.890 Other specified postprocedural states; E11.29 Type 2 diabetes mellitus with other diabetic kidney complication; I12.9 Hypertensive chronic kidney disease with stage 1 through stage 4 chronic kidney disease, or unspecified chronic kidney disease; R80.9 Proteinuria, unspecified; C88.0 Waldenstrom macroglobulinemia; N18.3 Chronic kidney disease, stage 3 (moderate); Z85.46 Personal history of malignant neoplasm of prostate; E78.5 Hyperlipidemia, unspecified; Z79.899 Other long term (current) drug therapy; Z79.84 Long term (current) use of oral hypoglycemic drugs; Z88.0 Allergy status to penicillin
CPT/HCPCS: 36415; 50200; 76775; 76857; 76942; 80069; 85025; 88300; 96374; 96376; G0378; J2270

== ENCOUNTER → 2019-06-14 | Outpatient (CLI) | payer MEDICARE ==
[2019-06-14 13:45] LABS: BASO % 0.5 % (0.0-1.0); EOS # 0.2 10^3/uL (0.0-0.50); EOS % 2.5 % (0.0-3.0); HEMATOCRIT 36.5 % (42.0-52.0); HEMOGLOBIN 11.6 g/dl (13.5-17.5); LYMPH # 0.9 10^3/uL (1.5-4.5); LYMPH % 14.6 % (24.0-44.0); MEAN CORPUSCULAR HEMOGLOBIN 29.4 pg (27.0-33.0); MEAN CORPUSCULAR HGB CONC 31.8 g/dl (32.0-36.5); MEAN CORPUSCULAR VOLUME 92.4 fl (80.0-96.0); MONO # 0.5 10^3/uL (0.0-0.8); MONO % 8.2 % (0.0-5.0); NEUTROPHILS # 4.5 10^3/uL (1.8-7.7); NEUTROPHILS % 73.9 % (36.0-66.0); PLATELET COUNT, AUTOMATED 239 10^3/uL (150-450); RED BLOOD COUNT 3.95 10^6/uL (4.30-6.10); WHITE BLOOD COUNT 6.1 10^3/uL (4.0-10.0)
[2019-06-14 14:21] LABS: IMMUNOGLOBULIN A 77.8 MG/DL (70-400)
== END ==
LOC: M LAB 12:50
PROVIDERS: ATTEND Internal Medicine Hematology & Oncology
DX: C61 Malignant neoplasm of prostate (principal)

== ENCOUNTER → 2019-08-08 | Outpatient (CLI) | payer MEDICARE | LOC: M LAB 12:57 | PROVIDERS: ATTEND Radiology Radiation Oncology | DX: C61 Malignant neoplasm of prostate (principal) ==

== ENCOUNTER → 2019-08-17 | Outpatient (CLI) | payer MEDICARE ==
--- NOTE | 2019-08-18 10:17 | RADONC ---
FOLLOWUP NOTE DATE OF SERVICE: 08/17/2019 CHART NUMBER: [id number]. DIAGNOSIS: Prostate cancer. STAGE: IIB, [id number]. ECOG PERFORMANCE STATUS: 0. FOLLOWUP NOTE: Mr. Jorge is a very pleasant 68-year-old white male with the diagnosis of a stage IIB, [id number] moderate to poorly differentiated [place] score 7 (4 - 3) adenocarcinoma of the prostate who is presenting to us today for routine followup visit 2 years and 9 months postcompletion of external beam radiation therapy. The patient presents today reporting that he is doing quite well with no complaints at this time related to his radiation therapy or disease. He is having no urinary or bowel difficulties and no bone pain. REVIEW OF SYSTEMS: The patient's review of systems is noncontributory. He denies nausea, vomiting, fevers, chills, night sweats, diplopia, headaches, anxiety or depression, anorexia, weight loss, visual disturbances, chest pain, urinary or bowel difficulties, bone pain, or neurological problems. PHYSICAL EXAMINATION: The patient is a well-developed, well-nourished male in no acute distress. HEENT exam is normocephalic, atraumatic. Extraocular movements are intact. There is no palpable cervical, supraclavicular, infraclavicular, axillary, or inguinal lymphadenopathy present. Lungs are clear to auscultation and percussion. Heart has a regular rate and rhythm. Abdomen is benign with no hepatosplenomegaly, masses, or tenderness. Skeletal examination reveals no tenderness to pressure or percussion of the bony skeleton. Extremities reveal no clubbing, cyanosis, or edema. Neurologic exam is grossly intact, as is the remainder of the physical examination. Rectal examination reveals a normal anal sphincter tone. His prostate bed is smooth with no evidence of nodularity. ASSESSMENT: The patient is clinically KELLEE at this time. He is continuing his close followup with his urologist, Darin Fish MD. Indeed, he is scheduled see Dr. Fish in September this year. In light of this, I am discharging this patient from our followup except on a p.r.n. basis. cc: MD Mahamed Arriaga MD
== END ==
LOC: M ONCR 10:14
PROVIDERS: ATTEND Radiology Radiation Oncology
DX: C61 Malignant neoplasm of prostate (principal)

== ENCOUNTER → 2019-12-13 | Outpatient (CLI) | payer MEDICARE ==
[2019-12-13 14:07] LABS: BASO % 0.5 % (0.0-1.0); EOS # 0.2 10^3/uL (0.0-0.5); EOS % 2.3 % (0.0-3.0); HEMOGLOBIN 11.7 g/dl (13.5-17.5); LYMPH # 0.8 10^3/uL (1.5-5.0); LYMPH % 12.8 % (24.0-44.0); MEAN CORPUSCULAR HEMOGLOBIN 29.1 pg (27.0-33.0); MEAN CORPUSCULAR HGB CONC 31.6 g/dl (32.0-36.5); MONO # 0.6 10^3/uL (0.0-0.8); MONO % 8.6 % (0.0-5.0); NEUTROPHILS # 4.8 10^3/uL (1.5-8.5); NEUTROPHILS % 75.5 % (36.0-66.0); PLATELET COUNT, AUTOMATED 248 10^3/uL (150-450); RED BLOOD COUNT 4.02 10^6/uL (4.30-6.10); WHITE BLOOD COUNT 6.4 10^3/uL (4.0-10.0)
[2019-12-13 15:36] LABS: IMMUNOGLOBULIN A 80.8 MG/DL (70-400)
== END ==
LOC: M LAB 12:38
PROVIDERS: ATTEND Internal Medicine Hematology & Oncology
DX: D47.2 Monoclonal gammopathy (principal)

== ENCOUNTER → 2019-12-26 | Outpatient (REF) | payer MEDICARE | LOC: M LAB REF 14:56 | PROVIDERS: ATTEND Internal Medicine Hematology & Oncology | DX: Z79.899 Other long term (current) drug therapy (principal) ==

== ENCOUNTER → 2019-12-28 | Outpatient (CLI) | payer MEDICARE ==
[~2019-12-28] MED LIST changes: +GASTROGRAFIN SOLUTION 30ML (Q9963) As Ordered ONE; +ISOVUE-370 76% 100ML VIAL (Q9967) As Ordered ONE
--- NOTE | 2019-12-28 20:35 | REP ---
CT chest without contrast: History: Evaluate for lymphadenopathy or organomegaly. Waldenstrom's lymphoplasmacytic non-Hodgkins lymphoma. No comparison chest CT. CT findings: There is mild linear fibrosis in the left lung base. The lung quiles are otherwise clear. No pulmonary nodule or mass lesion is seen. No infiltrate is noted. There is coronary artery vascular calcification and aortic arch vascular calcification noted. There is no evidence of hilar or mediastinal lymphadenopathy on this noncontrast study. No pleural or pericardial effusion is seen. No adrenal lesion is seen. The visualized upper abdominal structures are unremarkable. No axillary or supraclavicular lymphadenopathy is appreciated. No bony destructive lesion. Impression: Linear fibrosis left base. Vascular calcification. No acute cardiopulmonary disease. Electronically Signed by Don Restrepo MD 12/29/2019 08:58 A
--- NOTE | 2019-12-28 20:37 | REP ---
CT abdomen and pelvis without IV or oral contrast: History: Evaluate for lymphadenopathy or organomegaly. No comparison abdominal CT study. Findings: Preliminary digital drafting instructor radiograph demonstrates an unremarkable bowel gas pattern. There is no evidence of upper abdominal ascites. The liver and the spleen are normal in size and homogeneous in texture. Adrenal glands are normal bilaterally. The kidneys appear morphologically intact. No abnormality is noted in the pancreas or the gallbladder. No retroperitoneal lymphadenopathy is appreciated. Scattered normal appearing subcentimeter periaortic nodes are visible. There are scattered mesenteric lymph nodes in the small bowel mesentery. These are normal in size as well. The largest of these measures 7 mm in short axis dimension. No pelvic mass or adenopathy is observed. No inguinal or obturator adenopathy is seen. Urinary bladder is intact. The prostate is surgically absent. No abdominal wall defect is seen. Small and large intestinal bowel loops are unremarkable. The appendix is not confidently identified but there is no CT evidence to suggest appendicitis. Bone window settings show no bony destructive lesion. Impression: No acute intra-abdominal abnormality. Status post prostatectomy. No organomegaly or adenopathy seen. Electronically Signed by Don Restrepo MD 12/29/2019 08:58 A
== END ==
LOC: M RAD 16:06
PROVIDERS: ATTEND Internal Medicine Hematology & Oncology
DX: I89.0 Lymphedema, not elsewhere classified (principal)
CPT/HCPCS: 71250; 74176; Q9963

== ENCOUNTER 2020-02-09 11:09 | Emergency (ER) | payer MEDICARE ==
[~2020-02-09] VITALS: Ht 175.3 cm; Wt 101.8 kg
[~2020-02-09 11:09] MED LIST changes: -GASTROGRAFIN SOLUTION 30ML (Q9963) As Ordered ONE; -ISOVUE-370 76% 100ML VIAL (Q9967) As Ordered ONE
[2020-02-09] MEDS ORDERED: IBUPROFEN (11:16)
[2020-02-09 12:29] LABS: INR 1.11; PROTHROMBIN TIME 14.1 SECONDS (11.8-14.0)
[2020-02-09] MEDS ORDERED: ACETAMINOPHEN 325 MG TAB PO ONE (12:30)
[2020-02-09 12:44] LABS: C REACTIVE PROTEIN QUANTITATIV 5.34 MG/DL (0.00-0.30); URIC ACID 8.1 MG/DL (3.5-7.2)
--- NOTE | 2020-02-09 14:56 | REP ---
REASON: Redness and swelling. PRIORS: None. FINDINGS: The compartments are symmetric and relatively well maintained. There is no acute fracture or destructive osseous lesion. There are meniscal calcifications suggestive of chronic calcified meniscal degenerative changes or possibly calcium pyrophosphate deposition disorder. The distinction is made on a clinical basis. Electronically Signed by Juanito Silva DO 02/10/2020 08:33 A
[2020-02-09 17:39] LABS: CRYSTALS, BODY FLUID NONE SEEN (NONE SEEN); SOURCE, BODY FLUID RT KNEE; SOURCE, BODY FLUID CRYSTALS RT KNEE; SYNOVIAL FLUID COLOR RED (YELLOW)
[2020-02-09] MEDS ORDERED: cefTRIAXone SOD 1 GM in D5W MINI-BAG PLUS 50 ML IV ONE (17:45)
[2020-02-09 18:15] LABS: SOURCE, BODY FLUID GLUCOSE RT KNEE; SOURCE, BODY FLUID URIC ACID RT KNEE; URIC ACID, BODY FLUID 8.1 MG/DL (NOT ESTABLISHED)
[2020-02-09] MEDS ORDERED: KEFL500C17 PO (18:55)
[2020-02-09 19:00] VITALS: BP 123/69
--- NOTE | 2020-02-12 09:32 | ED PDOC ---
Post-Departure Follow-Up nancy bae faxed formal reportof right knee film for fu Juancho Gonsalez MD Feb 12, 2020 09:32
--- NOTE | 2020-03-22 09:21 | ER ---
DATE OF VISIT: 02/09/2020 INDICATION: Right knee infection. HISTORY OF PRESENT ILLNESS: Jensen Jorge is very pleasant 69-year-old gentleman receiving treatment for lymphoma who presented to the emergency room (ER) with several days of worsening right knee pain and swelling. Pain is worse in the proximal aspect of the patella. It can get up to 8/10 on a pain scale at its worse. It is slightly worse with weightbearing. Denies any trauma or inciting event. He is undergoing chemotherapy and the oncology department want to make sure there is no active infection in the knee. For the patient's full past medical history, past surgical history, medications, allergies, social history, and review of systems please see the intake form from the ER, which I reviewed. PHYSICAL EXAMINATION: Reveals an elderly gentleman in no distress. Alert and oriented times three. Neurologic: Appropriate mood and affect. Cardiovascular: 2+ DP pulse. Pulmonary: Nonlabored breathing. Abdomen is nondistended. Skin in the right knee is intact. No open lesions. Musculoskeletal: The patient has minimal joint effusion. He has prepatellar swelling consistent with bursitis. There is no erythema. There is minimal warmth. He has 90 degree range of motion arch. Maximal tenderness is at the proximal pole of patella distal quad. He has an intact straight leg raise. Good strength and sensation distally. X-ray of the right knee revealed mild arthritic changes. No significant joint effusion, atlhough the lateral view is somewhat rotated. There is prepatellar swelling. Labs: The patient has an ESR of 70, CRP of 5.3, uric acid of 8.1. ASSESSMENT AND PLAN: Jensen Jorge has right knee cellulitis with a prepatellar bursitis. This clinical picture is not consistent with septic arthritis. I recommend treating the patient with oral antibiotics for cellulitis and then followup within 3-5 days in the office. We can consider an MRI on an outpatient basis if indicated. He agrees with the plan.
== END 2020-02-09 19:07 | disposition home or self-care (01) ==
LOC: M ED 11:09
DX: L03.115 Cellulitis of right lower limb (principal); I12.9 Hypertensive chronic kidney disease with stage 1 through stage 4 chronic kidney disease, or unspecified chronic kidney disease; E11.9 Type 2 diabetes mellitus without complications; N18.3 Chronic kidney disease, stage 3 (moderate); C85.90 Non-Hodgkin lymphoma, unspecified, unspecified site; C88.0 Waldenstrom macroglobulinemia; F41.9 Anxiety disorder, unspecified; Z85.46 Personal history of malignant neoplasm of prostate; Z79.899 Other long term (current) drug therapy; Z88.0 Allergy status to penicillin
CPT/HCPCS: 36415; 73564; 80053; 82945; 83872; 84550; 84560; 85027; 85610; 85652; 85730; 86140; 86430; 87040; 87070; 87205; 89060; 96365; 99284; J0696

== ENCOUNTER → 2020-03-01 | Outpatient (CLI) | payer MEDICARE ==
[~2020-03-01] MED LIST changes: +IBUPROFEN; +KEFL500C17 PO
[2020-03-01 09:32] LABS: BASO % 0.5 % (0.0-1.0); EOS # 0.2 10^3/uL (0.0-0.5); EOS % 2.6 % (0.0-3.0); HEMATOCRIT 33.9 % (42.0-52.0); HEMOGLOBIN 10.9 g/dl (13.5-17.5); LYMPH # 0.7 10^3/uL (1.5-5.0); LYMPH % 12.1 % (24.0-44.0); MEAN CORPUSCULAR HEMOGLOBIN 29.5 pg (27.0-33.0); MEAN CORPUSCULAR HGB CONC 32.2 g/dl (32.0-36.5); MEAN CORPUSCULAR VOLUME 91.9 fl (80.0-96.0); MONO # 0.4 10^3/uL (0.0-0.8); MONO % 7.5 % (0.0-5.0); NEUTROPHILS # 4.5 10^3/uL (1.5-8.5); PLATELET COUNT, AUTOMATED 255 10^3/uL (150-450); RED BLOOD COUNT 3.69 10^6/uL (4.30-6.10); WHITE BLOOD COUNT 5.9 10^3/uL (4.0-10.0)
[2020-03-01 10:12] LABS: ALBUMIN 3.3 GM/DL (3.2-5.2); BILIRUBIN,TOTAL 0.3 MG/DL (0.2-1.0); CALCIUM LEVEL 8.7 MG/DL (8.8-10.2); CREATININE FOR GFR 1.82 MG/DL (0.70-1.30); GLOMERULAR FILTRATION RATE 39.4 (>42); POTASSIUM SERUM 4.4 MEQ/L (3.5-5.1); TOTAL PROTEIN 6.5 GM/DL (6.4-8.2)
== END ==
LOC: M LAB 09:02
PROVIDERS: ATTEND Internal Medicine Hematology & Oncology
DX: C83.00 Small cell B-cell lymphoma, unspecified site (principal)

== ENCOUNTER → 2020-03-28 | Outpatient (CLI) | payer MEDICARE ==
[2020-03-28 12:18] LABS: BASO % 0.4 % (0.0-1.0); EOS # 0.2 10^3/uL (0.0-0.5); HEMATOCRIT 35.3 % (42.0-52.0); HEMOGLOBIN 11.4 g/dl (13.5-17.5); LYMPH # 0.7 10^3/uL (1.5-5.0); LYMPH % 12.8 % (24.0-44.0); MEAN CORPUSCULAR HEMOGLOBIN 29.8 pg (27.0-33.0); MEAN CORPUSCULAR HGB CONC 32.3 g/dl (32.0-36.5); MEAN CORPUSCULAR VOLUME 92.2 fl (80.0-96.0); MONO # 0.5 10^3/uL (0.0-0.8); MONO % 8.4 % (0.0-5.0); NEUTROPHILS # 4.3 10^3/uL (1.5-8.5); NEUTROPHILS % 75.2 % (36.0-66.0); PLATELET COUNT, AUTOMATED 229 10^3/uL (150-450); RED BLOOD COUNT 3.83 10^6/uL (4.30-6.10); WHITE BLOOD COUNT 5.7 10^3/uL (4.0-10.0)
[2020-03-28 13:09] LABS: ALBUMIN 3.2 GM/DL (3.2-5.2); BILIRUBIN,TOTAL 0.2 MG/DL (0.2-1.0); CALCIUM LEVEL 8.5 MG/DL (8.8-10.2); CREATININE FOR GFR 1.93 MG/DL (0.70-1.30); GLOMERULAR FILTRATION RATE 36.8 (>42); IMMUNOGLOBULIN A 61.3 MG/DL (70-400); POTASSIUM SERUM 4.6 MEQ/L (3.5-5.1); TOTAL PROTEIN 6.2 GM/DL (6.4-8.2)
== END ==
LOC: M LAB 11:42
PROVIDERS: ATTEND Internal Medicine Hematology & Oncology
DX: D47.2 Monoclonal gammopathy (principal)

== ENCOUNTER → 2020-09-13 | Outpatient (CLI) | payer MEDICARE ==
[~2020-09-13] MED LIST changes: +ENAL-36 PO; -ENAL10TA2 PO; +ENAL5TA PO; -ENAL5TAB PO
== END ==
LOC: M LAB 10:00
PROVIDERS: ATTEND Urology
DX: C61 Malignant neoplasm of prostate (principal)

== ENCOUNTER 2021-02-17 11:26 | Emergency (ER) | payer MEDICARE ==
[~2021-02-17] VITALS: Ht 175.3 cm; Wt 102.7 kg
[~2021-02-17 11:26] MED LIST changes: +HYDR-3490 PO; -HYDR25TAB PO
--- NOTE | 2021-02-17 12:40 | REP ---
INDICATION: pain/redness. COMPARISON: None. TECHNIQUE: Five views of the left knee are provided. FINDINGS: 5 views of the left knee demonstrate vascular calcification. There is prepatellar soft tissue swelling. No patellar fracture is seen. No other fracture is noted. Joint spaces are preserved.. . No opaque foreign body noted. IMPRESSION: Prominent peripatellar and prepatellar soft tissue swelling. No fracture or other acute bony abnormality. Vascular calcification is noted.. <Electronically signed by John Restrepo > 02/17/21 [id number]
[2021-02-17] MEDS ORDERED: ACETAMINOPHEN 500 MG TAB PO ONE (13:30)
[2021-02-17 14:36] LABS: C REACTIVE PROTEIN QUANTITATIV 0.52 MG/DL (0.00-0.30); CALCIUM LEVEL 10.2 MG/DL (8.8-10.2); CREATININE FOR GFR 2.05 MG/DL (0.70-1.30); GLOMERULAR FILTRATION RATE 34.2 (>42); POTASSIUM SERUM 5.3 MEQ/L (3.5-5.1)
[2021-02-17 15:09] LABS: BASO % 0.4 % (0.0-1.0); EOS # 0.1 10^3/uL (0.0-0.5); EOS % 1.5 % (0.0-3.0); HEMATOCRIT 37.6 % (42.0-52.0); HEMOGLOBIN 12.2 g/dl (13.5-17.5); LYMPH # 0.8 10^3/uL (1.5-5.0); LYMPH % 9.5 % (24.0-44.0); MEAN CORPUSCULAR HEMOGLOBIN 29.7 pg (27.0-33.0); MEAN CORPUSCULAR HGB CONC 32.4 g/dl (32.0-36.5); MEAN CORPUSCULAR VOLUME 91.5 fl (80.0-96.0); MONO # 0.7 10^3/uL (0.0-0.8); MONO % 8.7 % (2.0-8.0); NEUTROPHILS # 6.3 10^3/uL (1.5-8.5); NEUTROPHILS % 79.8 % (36.0-66.0); PLATELET COUNT, AUTOMATED 250 10^3/uL (150-450); RED BLOOD COUNT 4.11 10^6/uL (4.30-6.10); WHITE BLOOD COUNT 7.9 10^3/uL (4.0-10.0)
[2021-02-17] MEDS ORDERED: CEPH500C PO (15:44)
[2021-02-17 15:57] LABS: ERYTHROCYTE SEDIMENTATION RATE 62 mm/hr (0-20)
[2021-02-17 15:59] VITALS: BP 124/74
--- NOTE | 2021-02-17 22:00 | CR ---
CONSULTATION DATE: 02/17/2021 REASON FOR CONSULTATION: Left knee pain, concern for infection. CHIEF COMPLAINT: Left knee pain. HISTORY OF PRESENT ILLNESS: The patient is a 70-year-old male who, over the last few days, noticed pain over his left knee. He has had prepatellar bursitis in the past, which was successfully treated with outpatient antibiotics. He says this feels exactly the same. He is able to bear weight and the longer he starts to walk on it, the better it feels. He is also able to bend it beyond 90 degrees without significant pain. He has also tried some Tylenol and naproxen with improvement of his pain. He presents to the emergency department for evaluation of his pain. Orthopedics was consulted to rule out septic knee. Otherwise, no other complaints. He has been afebrile. PAST MEDICAL HISTORY: 1. Cardiac problems. 2. Hypercholesterolemia. 3. Hypertension. 4. Prostate cancer. 5. Diabetes. 6. Anxiety. 7. Anemia. PAST SURGICAL HISTORY: 1. Abdominal surgery. 2. Prostate surgery. 3. Colonoscopy. FAMILY HISTORY: Father, brother and sister all have a history of cancer. SOCIAL HISTORY: Unspecified. Lives at home with his . REVIEW OF SYSTEMS: A 10 point system review is negative except for history of present illness (HPI). PHYSICAL EXAMINATION: GENERAL: He is well-developed, well-nourished, alert and oriented times four. PSYCHIATRIC: Normal mood and affect. CARDIAC: Regular rate and rhythm. RESPIRATORY: Nonlabored breathing. Equal chest rise and fall. ABDOMEN: Nontender. SKIN: Intact. No breaks in the skin. EXAMINATION OF LEFT LOWER EXTREMITY: Demonstrates some erythema and swelling over the prepatellar bursa. The patient has tenderness to palpation here. He has some erythema which extends over the superolateral, superomedial and anteromedial portal sites. He is able to flex his knee just beyond 90 degrees and also perform straight leg raise. He has no joint effusion. He is able to bear weight. He is otherwise neurovascularly intact distally. IMAGING STUDIES: X-ray of the left knee demonstrate mild prepatellar swelling. No joint effusion. LABORATORY DATA: White count 7.9. Erythrocyte sedimentation rate (ESR) 62. C-reactive protein (CRP) 0.5. ASSESSMENT: This is a 70-year-old male with left knee prepatellar bursitis, which appears to be mild at this point. He has had this before and he says it feels exactly the same. He was treated successfully with oral antibiotics. I think that because of the erythema overlying the knee, which is mild, but it does cover the areas that I would use for an arthrocentesis, I am hesitant to stick a needle through these areas of redness and seed the joint and cause a subject arthritis. I have a very low suspicion of this being the case and thus, I think it is best to treat the patient with rest, ice, compression, oral antibiotics he was treated with before and close followup with his primary care provider for the next couple of days. Patient understands this. I discussed this with him, as well as with the treatment team.
== END 2021-02-17 16:00 | disposition home or self-care (01) ==
LOC: M ED 11:26
DX: L03.115 Cellulitis of right lower limb (principal); M25.462 Effusion, left knee; I10 Essential (primary) hypertension; E11.9 Type 2 diabetes mellitus without complications; E78.5 Hyperlipidemia, unspecified; F41.9 Anxiety disorder, unspecified; C85.90 Non-Hodgkin lymphoma, unspecified, unspecified site; Z88.0 Allergy status to penicillin; Z79.899 Other long term (current) drug therapy

== ENCOUNTER → 2021-02-22 | Outpatient (CLI) | payer MEDICARE ==
[~2021-02-22] MED LIST changes: +CEPH500C PO
--- NOTE | 2021-02-22 09:48 | REP ---
INDICATION: PAIN. COMPARISON: Comparison is made with standard bilateral knee radiographs from 17 February 2021 and 09 February 2020... TECHNIQUE: Standing AP view both knees is acquired. FINDINGS: Chondrocalcinosis is visible in the lateral and to a lesser extent medial compartment of the right knee. There is mild bilateral medial compartment joint space narrowing. Mild diffuse osteopenia. No bony erosive change is seen. Vascular calcification is visible on the left. IMPRESSION: Chondrocalcinosis and mild medial compartment joint space narrowing. <Electronically signed by John Restrepo > 02/22/21 0910
== END ==
LOC: M SOG 02-21 15:46
PROVIDERS: ATTEND Orthopaedic Surgery Adult Reconstructive Orthopaedic Surgery
DX: M11.261 Other chondrocalcinosis, right knee (principal); M85.862 Other specified disorders of bone density and structure, left lower leg; M85.861 Other specified disorders of bone density and structure, right lower leg

== ENCOUNTER → 2021-05-27 | Outpatient (REF) | payer MEDICARE ==
[~2021-05-27] MED LIST changes: +COVI100V IM
== END ==
LOC: M LAB REF 17:16
PROVIDERS: ATTEND Internal Medicine Nephrology
DX: N18.32 Chronic kidney disease, stage 3b (principal)

== ENCOUNTER → 2021-08-27 | Outpatient (CLI) | payer MEDICARE ==
[~2021-08-27] MED LIST changes: +SITA50TAB PO
== END ==
LOC: M LAB 10:46
PROVIDERS: ATTEND Urology
DX: C61 Malignant neoplasm of prostate (principal); N18.32 Chronic kidney disease, stage 3b

== ENCOUNTER → 2021-08-27 | Outpatient (REF) | payer MEDICARE | LOC: M LAB REF 12:52 | PROVIDERS: ATTEND Internal Medicine Nephrology | DX: N18.32 Chronic kidney disease, stage 3b (principal) ==

== ENCOUNTER → 2021-11-27 | Outpatient (REF) | payer MEDICARE ==
[2021-11-27 15:02] LABS: TOTAL PROTEIN,RANDOM URINE 205.8 MG/DL (0.0-12.0)
[2021-11-28 09:28] LABS: CREATININE,RANDOM URINE 83.6 MG/DL
== END ==
LOC: M LAB REF 12:57
PROVIDERS: ATTEND Nurse Practitioner Family
DX: R80.9 Proteinuria, unspecified (principal); N18.32 Chronic kidney disease, stage 3b; E83.42 Hypomagnesemia

== ENCOUNTER → 2022-03-03 | Outpatient (CLI) | payer MEDICARE | LOC: M WHC 10:50 | PROVIDERS: ATTEND Nurse Practitioner Family | DX: Q61.02 Congenital multiple renal cysts (principal); N18.32 Chronic kidney disease, stage 3b; I12.9 Hypertensive chronic kidney disease with stage 1 through stage 4 chronic kidney disease, or unspecified chronic kidney disease ==

== ENCOUNTER → 2022-05-28 | Outpatient (REF) | payer MEDICARE ==
[2022-05-28 17:58] LABS: CREATININE,RANDOM URINE 80.4 MG/DL; TOTAL PROTEIN,RANDOM URINE 145.4 MG/DL (0.0-12.0)
== END ==
LOC: M LAB REF 16:54
PROVIDERS: ATTEND Nurse Practitioner Family
DX: R80.9 Proteinuria, unspecified (principal)

== ENCOUNTER → 2022-09-12 | Outpatient (CLI) | payer MEDICARE | LOC: M LAB 15:03 | PROVIDERS: ATTEND Urology | DX: C61 Malignant neoplasm of prostate (principal) ==

== ENCOUNTER → 2022-11-26 | Outpatient (REF) | payer MEDICARE ==
[2022-11-26 17:34] LABS: CREATININE,RANDOM URINE 75.3 MG/DL
[2022-11-26 17:35] LABS: TOTAL PROTEIN,RANDOM URINE 207.8 MG/DL (0.0-14.0)
== END ==
LOC: M LAB REF 16:52
PROVIDERS: ATTEND Nurse Practitioner Family
DX: R80.9 Proteinuria, unspecified (principal)

== ENCOUNTER → 2023-02-24 | Outpatient (REF) | payer MEDICARE ==
[~2023-02-24] MED LIST changes: -ENAL-36 PO; +ENAL1TAB48 PO; +ENAL1TAB50 PO; -ENAL5TA PO
[2023-02-24 18:13] LABS: CREATININE,RANDOM URINE 73.4 MG/DL
[2023-02-24 18:15] LABS: TOTAL PROTEIN,RANDOM URINE 146.3 MG/DL (0.0-14.0)
== END ==
LOC: M LAB REF 16:58
PROVIDERS: ATTEND Nurse Practitioner Family
DX: C88.0 Waldenstrom macroglobulinemia (principal); R80.9 Proteinuria, unspecified

== ENCOUNTER → 2023-03-26 | Outpatient (REF) | payer MEDICARE ==
[2023-03-26 18:24] LABS: CREATININE,RANDOM URINE 67.7 MG/DL
[2023-03-26 18:29] LABS: TOTAL PROTEIN,RANDOM URINE 221.5 MG/DL (0.0-14.0)
== END ==
LOC: M LAB REF 17:21
PROVIDERS: ATTEND Nurse Practitioner Family
DX: C88.0 Waldenstrom macroglobulinemia (principal); R80.9 Proteinuria, unspecified

== ENCOUNTER → 2023-06-26 | Outpatient (REF) | payer MEDICARE ==
[~2023-06-26] MED LIST changes: +AMLO1TAB24; +ATOR40TA75; +CEFA1INJ IV; +CULT10CA4 PO; +ENAL1TAB48; +MAGN400T33
[2023-06-26 17:38] LABS: TOTAL PROTEIN,RANDOM URINE 115.3 MG/DL (0.0-14.0)
[2023-06-26 17:43] LABS: CREATININE,RANDOM URINE 15.9 MG/DL
== END ==
LOC: M LAB REF 16:53
PROVIDERS: ATTEND Nurse Practitioner Family
DX: R80.9 Proteinuria, unspecified (principal)

== ENCOUNTER → 2023-09-30 | Outpatient (CLI) | payer MEDICARE, MEDICAID ==
[~2023-09-30] MED LIST changes: +GLIP5TAB17 PO; -GLIP5TAB8 PO; +TRUL10IN
== END ==
LOC: M LAB 10:55
PROVIDERS: ATTEND Urology
DX: C61 Malignant neoplasm of prostate (principal)

== ENCOUNTER → 2023-09-30 | Outpatient (REF) | payer MEDICARE, MEDICAID ==
[2023-09-30 19:16] LABS: CREATININE,RANDOM URINE 68.8 MG/DL
[2023-09-30 19:19] LABS: TOTAL PROTEIN,RANDOM URINE 148.4 MG/DL (0.0-14.0)
== END ==
LOC: M LAB REF 17:33
PROVIDERS: ATTEND Nurse Practitioner Family
DX: R80.9 Proteinuria, unspecified (principal); C88.0 Waldenstrom macroglobulinemia; C61 Malignant neoplasm of prostate

== ENCOUNTER → 2024-02-02 | Outpatient (REF) | payer MEDICARE, MEDICAID, OTHER ==
[~2024-02-02] MED LIST changes: -ENAL1TAB48; +ENAL1TAB52; +ENAL1TAB52 PO; +FARX1TAB5
[2024-02-02 18:17] LABS: TOTAL PROTEIN,RANDOM URINE 102.6 MG/DL (0.0-14.0)
[2024-02-02 18:21] LABS: CREATININE,RANDOM URINE 44.7 MG/DL
== END ==
LOC: M LAB REF 16:53
PROVIDERS: ATTEND Nurse Practitioner Family
DX: R80.9 Proteinuria, unspecified (principal)

== ENCOUNTER → 2024-02-23 | Outpatient (CLI) | payer MEDICARE, MEDICAID ==
[~2024-02-23] MED LIST changes: +LIDOCAINE 1% MDV 20ML VIAL As Ordered ONE
[2024-02-23 12:15] VITALS: TEMP 98.4
[2024-02-23 12:52] LABS: HEMATOCRIT 33.4 % (42.0-52.0); HEMOGLOBIN 10.9 g/dl (13.5-17.5); MEAN CORPUSCULAR HEMOGLOBIN 30.3 pg (27.0-33.0); MEAN CORPUSCULAR HGB CONC 32.6 g/dl (32.0-36.5); MEAN CORPUSCULAR VOLUME 92.8 fl (80.0-96.0); PLATELET COUNT, AUTOMATED 225 10^3/uL (150-450); WHITE BLOOD COUNT 6.3 10^3/uL (4.0-10.0)
[2024-02-23 13:03] LABS: INR 0.98; PROTHROMBIN TIME 12.7 SECONDS (12.5-14.5)
[2024-02-23 13:40] VITALS: BP 133/65; O2SAT 97
== END ==
LOC: M IRPRO 11:59
PROVIDERS: ATTEND Internal Medicine Medical Oncology
DX: C88.0 Waldenstrom macroglobulinemia (principal)

== ENCOUNTER → 2024-05-12 | Outpatient (REF) | payer MEDICARE, MEDICAID ==
[~2024-05-12] MED LIST changes: -LIDOCAINE 1% MDV 20ML VIAL As Ordered ONE
[2024-05-12 19:23] LABS: TOTAL PROTEIN,RANDOM URINE 115.7 MG/DL (0.0-14.0)
[2024-05-12 19:26] LABS: CREATININE,RANDOM URINE 64.7 MG/DL
== END ==
LOC: M LAB REF 17:18
PROVIDERS: ATTEND Nurse Practitioner Family
DX: R80.9 Proteinuria, unspecified (principal)

== ENCOUNTER → 2024-08-12 | Outpatient (REF) | payer MEDICARE, MEDICAID ==
[2024-08-12 18:54] LABS: CREATININE,RANDOM URINE 71.8 MG/DL
[2024-08-12 18:55] LABS: TOTAL PROTEIN,RANDOM URINE 132.9 MG/DL (0.0-14.0)
== END ==
LOC: M LAB REF 17:00
PROVIDERS: ATTEND Nurse Practitioner Family
DX: R80.9 Proteinuria, unspecified (principal)

== ENCOUNTER → 2024-10-04 | Outpatient (CLI) | payer MEDICARE, MEDICAID ==
[2024-10-04 19:01] LABS: APPEARANCE, URINE MANUAL CLOUDY (CLEAR); COLOR, URINE MANUAL RED (YELLOW)
[2024-10-04 19:02] LABS: BILIRUBIN, URINE MANUAL NEGATIVE (NEGATIVE); GLUCOSE, URINE (UA) MANUAL 4+(1000 MG/DL) mg/dL (NEGATIVE); KETONE, URINE MANUAL NEGATIVE (NEGATIVE); NITRITE, URINE MANUAL NEGATIVE (NEGATIVE); PROTEIN, URINE MANUAL 3+ mg/dL (NEGATIVE); SPECIFIC GRAVITY,URINE MANUAL 1.015 (1.002-1.035); UROBILINOGEN, URINE MANUAL NORMAL (NORMAL)
[2024-10-04 19:03] LABS: BLOOD URINE MANUAL POSITIVE (NEGATIVE); LEUKOCYTE ESTERASE, URINE MAN NEGATIVE (NEGATIVE)
[2024-10-04 19:05] LABS: BACTERIA, URINE NONE SEEN; HYALINE CAST, URINE NONE SEEN /lpf (0-1); RBC, URINE TNTC /hpf (0-3); SQUAMOUS EPITHELIAL CELL URINE NONE SEEN /hpf (SMALL AMT); WBC, URINE NONE SEEN /hpf (0-3)
== END ==
LOC: M LAB 08:54
PROVIDERS: ATTEND Urology
DX: C61 Malignant neoplasm of prostate (principal); R31.0 Gross hematuria
CPT/HCPCS: 36415; 51702; 51798; 81000; 84153; 87086; 88108; G0463

== ENCOUNTER → 2024-12-28 | Outpatient (REF) | payer MEDICARE, MEDICAID ==
[2024-12-29 19:24] LABS: CREATININE,RANDOM URINE 62.6 MG/DL
[2024-12-29 19:55] LABS: TOTAL PROTEIN,RANDOM URINE 241.2 MG/DL (0.0-14.0)
== END ==
LOC: M LAB REF 17:16
PROVIDERS: ATTEND Nurse Practitioner Family
DX: R80.9 Proteinuria, unspecified (principal)

== ENCOUNTER → 2025-06-28 | Outpatient (REF) | payer MEDICARE, MEDICAID ==
[~2025-06-28] MED LIST changes: +ATOR80TA59; +CALC1CAP31 PO; -CEFA1INJ IV; +CEFA1SYR4 IV; +FARX1TAB3; +GLIP10TA15; +PIOG1TAB36; +SODI325T9 PO
[2025-06-28 19:30] LABS: TOTAL PROTEIN,RANDOM URINE 364.5 MG/DL (0.0-14.0)
[2025-06-30 14:37] LABS: PROTEIN CREATININE RATIO 7031 mg/g creat (25-148); T PROTEIN CREATININE RATIO 7.031 (0.025-0.148); UPEP CREATININE 65 mg/dL (20-320)
[2025-06-30 17:32] LABS: PROTEIN, TOTAL SO 5.7 g/dL (6.1-8.1)
[2025-07-04 07:01] LABS: UPEP ALBUMIN 71 %; UPEP TOTAL PROTEIN 457 mg/dL (5-25); URINE ALPHA 1 GLOBULIN 6 %; URINE ALPHA 2 GLOBULIN 10 %; URINE BETA GLOBULIN 8 %; URINE GAMMA GLOBULIN 7 %
== END ==
LOC: M LAB REF 17:29
PROVIDERS: ATTEND Nurse Practitioner Family
DX: R80.9 Proteinuria, unspecified (principal); C88.01 Waldenstrom macroglobulinemia, in remission

== ENCOUNTER → 2025-07-04 | Outpatient (REF) | payer MEDICARE, MEDICAID ==
[2025-07-04 17:55] LABS: TOTAL PROTEIN,RANDOM URINE 193.2 MG/DL (0.0-14.0)
== END ==
LOC: M LAB REF 16:46
PROVIDERS: ATTEND Nurse Practitioner Family
DX: R80.9 Proteinuria, unspecified (principal)

== ENCOUNTER → 2025-08-25 | Outpatient (REF) | payer MEDICARE, MEDICAID ==
[2025-08-25 17:48] LABS: IRON (FE) 72.0 UG/DL (65-175); PERCENT SATURATION 23.1 % (19.7-50.0)
== END ==
LOC: M LAB REF 16:51
PROVIDERS: ATTEND Nurse Practitioner Family
DX: D50.9 Iron deficiency anemia, unspecified (principal); D80.9 Immunodeficiency with predominantly antibody defects, unspecified

== ENCOUNTER → 2025-08-25 | Outpatient (REF) | payer MEDICARE, MEDICAID ==
[2025-08-25 18:17] LABS: TOTAL PROTEIN,RANDOM URINE 619.2 MG/DL (0.0-14.0)
== END ==
LOC: M LAB REF 17:02
PROVIDERS: ATTEND Nurse Practitioner Family
DX: R80.9 Proteinuria, unspecified (principal)